=== PATIENT | male | born 1960 | race Caucasian/White ===

== ENCOUNTER 2016-11-14 22:36 | Emergency (ER) | payer OTHER ==
[~2016-11-14] VITALS: Ht 175.3 cm; Wt 100.0 kg
[~2016-11-14 22:36] MED LIST: Z.0.NO CURRENT MEDS
[2016-11-14 22:57] VITALS: BP 110/65; PULSE 130; RESP 16; TEMP 98.6; O2SAT 94
[2016-11-14] MEDS ORDERED: SODIUM CHLORIDE 0.9% FLUSH 10 ML FLUSH IVF PRN (23:15)
[2016-11-14] MEDS ORDERED: SODIUM CHLOR 0.9% 1000 ML INJ 1,000 ML IV ONE (23:15)
--- NOTE | 2016-11-14 23:29 | PD ---
HPI Chief Complaint: Psychiatric Symptoms Time Seen by Provider: 23:03 Travel History International Travel<30 days: No Contact w/Intl Traveler<30days: No Traveled to known affect area: No History of Present Illness HPI Patient is a 56-year-old male presenting to the emergency department under a West act for psychiatric evaluation. Patient states he called 211 because he had been feeling depressed, he then agreed to allow the police to come to his house. He states that he took several Xanax throughout the course of the day and has been drinking whiskey and beer. Patient states he's had suicidal thoughts in the past but has not attempted suicide. He has no current plan at this time but has access to firearms in his home. Patient states he has a history of manic depressive disorder. [place] any visual auditory hallucinations. He reports increased stressors and unhappiness with his life and job in general. PFSH Past Medical History Anxiety: Yes Depression: Yes Diabetes: Yes (type II--diet control) Diminished Hearing: No Hypertension: Yes Social History Alcohol Use: Yes (whiskey daily) Tobacco Use: Yes (1+ PPD) Substance Use: Yes Allergies-Medications (Allergen,Severity, Reaction): Coded Allergies: No Known Allergies (Unverified , 11/14/16) Reported Meds & Prescriptions Reported Meds & Active Scripts Active Reported No Current Meds (Miscellaneous Medication) Misc Review of Systems Except as stated in HPI: all other systems reviewed are Neg Psychiatric: Positive: Depression, Suicidal Ideations, Substance Abuse Physical Exam Narrative GENERAL: Well-developed, well-nourished, intoxicated-appearing male. Resting comfortably in no acute distress. SKIN: Warm and dry. HEAD: Atraumatic. Normocephalic. EYES: Pupils equal and round. No scleral icterus. No injection or drainage. ENT: No nasal bleeding or discharge. Mucous membranes pink and moist. NECK: Trachea midline. No JVD. CARDIOVASCULAR: Regular rate and rhythm. RESPIRATORY: No accessory muscle use. Clear to auscultation. Breath sounds equal bilaterally. GASTROINTESTINAL: Abdomen soft, non-tender, nondistended. Hepatic and splenic margins not palpable. MUSCULOSKELETAL: Extremities without clubbing, cyanosis, or edema. No obvious deformities. NEUROLOGICAL: Awake and alert. No obvious cranial nerve deficits. Motor grossly within normal limits. Five out of 5 muscle strength in the arms and legs. Normal speech. PSYCHIATRIC: Flat mood and affect; insight and judgment impaired. Data Data Last Documented VS Vital Signs Date Time Temp Pulse Resp B/P (MAP) Pulse Ox O2 Delivery O2 Flow Rate FiO2 11/14/16 22:57 98.6 130 16 110/65 (80) 94 Orders Orders Complete Blood Count With Diff (11/14/16 23:) Comprehensive Metabolic Panel (11/14/16:) Iv Access Insert/Monitor (11/14/16:) Ecg Monitoring (11/14/16:) Psych Screen (11/14/16:) Sodium Chloride 0.9% Flush (Ns Flush) (11/14/16:15) Drug Screen, Random Urine (11/14/16:) Alcohol (Ethanol) (11/14/16:) Salicylates (Aspirin) (11/14/16:) Tylenol (Acetaminophen) (11/14/16:) Sodium Chlor 0.9% 1000 Ml Inj (Ns 1000 M (11/14/16 23:) Labs Laboratory Tests Test 11/14/16 23:20 White Blood Count 9.2 TH/MM3 Red Blood Count 4.77 MIL/MM3 Hemoglobin 15.4 GM/DL Hematocrit 43.9 % Mean Corpuscular Volume 92.1 FL Mean Corpuscular Hemoglobin 32.3 PG Mean Corpuscular Hemoglobin Concent 35.0 % Red Cell Distribution Width 13.6 % Platelet Count 200 TH/MM3 Mean Platelet Volume 8.3 FL Neutrophils (%) (Auto) 52.1 % Lymphocytes (%) (Auto) 34.1 % Monocytes (%) (Auto) 7.6 % Eosinophils (%) (Auto) 5.5 % Basophils (%) (Auto) 0.7 % Neutrophils # (Auto) 4.8 TH/MM3 Lymphocytes # (Auto) 3.1 TH/MM3 Monocytes # (Auto) 0.7 TH/MM3 Eosinophils # (Auto) 0.5 TH/MM3 Basophils # (Auto) 0.1 TH/MM3 CBC Comment DIFF FINAL Differential Comment Blood Urea Nitrogen 12 MG/DL Creatinine 1.02 MG/DL Random Glucose 110 MG/DL Total Protein 6.8 GM/DL Albumin 3.7 GM/DL Calcium Level 8.9 MG/DL Alkaline Phosphatase 49 U/L Aspartate Amino Transf (AST/SGOT) 21 U/L Alanine Aminotransferase (ALT/SGPT) 37 U/L Total Bilirubin 0.2 MG/DL Sodium Level 142 MEQ/L Potassium Level 3.5 MEQ/L Chloride Level 106 MEQ/L Carbon Dioxide Level 27.2 MEQ/L Anion Gap 9 MEQ/L Estimat Glomerular Filtration Rate 76 ML/MIN Salicylates Level 3.3 MG/DL Acetaminophen Level LESS THAN 2.0 MCG/ML Ethyl Alcohol Level 194 MG/DL MDM Medical Decision Making Medical Screen Exam Complete: Yes Emergency Medical Condition: Yes Interpretation(s) Laboratory Tests Test 11/14/16 23:20 White Blood Count 9.2 TH/MM3 Red Blood Count 4.77 MIL/MM3 Hemoglobin 15.4 GM/DL Hematocrit 43.9 % Mean Corpuscular Volume 92.1 FL Mean Corpuscular Hemoglobin 32.3 PG Mean Corpuscular Hemoglobin Concent 35.0 % Red Cell Distribution Width 13.6 % Platelet Count 200 TH/MM3 Mean Platelet Volume 8.3 FL Neutrophils (%) (Auto) 52.1 % Lymphocytes (%) (Auto) 34.1 % Monocytes (%) (Auto) 7.6 % Eosinophils (%) (Auto) 5.5 % Basophils (%) (Auto) 0.7 % Neutrophils # (Auto) 4.8 TH/MM3 Lymphocytes # (Auto) 3.1 TH/MM3 Monocytes # (Auto) 0.7 TH/MM3 Eosinophils # (Auto) 0.5 TH/MM3 Basophils # (Auto) 0.1 TH/MM3 CBC Comment DIFF FINAL Differential Comment Blood Urea Nitrogen 12 MG/DL Creatinine 1.02 MG/DL Random Glucose 110 MG/DL Total Protein 6.8 GM/DL Albumin 3.7 GM/DL Calcium Level 8.9 MG/DL Alkaline Phosphatase 49 U/L Aspartate Amino Transf (AST/SGOT) 21 U/L Alanine Aminotransferase (ALT/SGPT) 37 U/L Total Bilirubin 0.2 MG/DL Sodium Level 142 MEQ/L Potassium Level 3.5 MEQ/L Chloride Level 106 MEQ/L Carbon Dioxide Level 27.2 MEQ/L Anion Gap 9 MEQ/L Estimat Glomerular Filtration Rate 76 ML/MIN Salicylates Level 3.3 MG/DL Acetaminophen Level LESS THAN 2.0 MCG/ML Ethyl Alcohol Level 194 MG/DL Vital Signs Date Time Temp Pulse Resp B/P (MAP) Pulse Ox O2 Delivery O2 Flow Rate FiO2 10/1/17 22:57 98.6 130 16 110/65 (80) 94 Differential Diagnosis Mood disorder versus substance abuse for his suicidal ideations versus psychosis versus metabolic abnormality versus other Narrative Course Patient presented under West act for psychiatric evaluation second making suicidal ideations. Patient was tachycardic on arrival, he was given 1 L of IV fluids. Labs ordered and pending. Mental health screening discussed with the patient. Psychiatric screen ordered. CBC, chemistry reviewed, no acute findings identified. Alcohol level is 194 Salicylate and acetaminophen level are unremarkable Patient's heart rate was reassessed at 94. At this time patient is medically cleared for psychiatric evaluation. Diagnosis Primary Impression: Medical clearance for psychiatric admission Additional Impression: Acute alcohol intoxication Qualified Codes: F10.929 - Alcohol use, unspecified with intoxication, unspecified Condition: Stable Maria Alejandra Mello [employer] Nov 14, 2016 23:29
[2016-11-14 23:30] VITALS: BP 101/53; PULSE 106; RESP 20; O2SAT 100
[2016-11-14 23:35] LABS: AUTOMATED NEUTROPHIL # 4.8 TH/MM3 (1.8-7.7); BASOPHIL # 0.1 TH/MM3 (0-0.2); BASOPHIL % 0.7 % (0.0-2.0); EOSINOPHIL # 0.5 TH/MM3 (0-0.4); EOSINOPHIL % 5.5 % (0.0-4.0); HEMATOCRIT 43.9 % (39.0-51.0); HEMO FLAGS DIFF FINAL; LYMPH % 34.1 % (9.0-44.0); LYMPHOCYTE # 3.1 TH/MM3 (1.0-4.8); MEAN CELL VOLUME 92.1 FL (80.0-100.0); MEAN CORPUSCULAR HEMOGLOBIN 32.3 PG (27.0-34.0); MONO % 7.6 % (0.0-8.0); NEUT % 52.1 % (16.0-70.0); PLATELET COUNT 200 TH/MM3 (150-450); RED BLOOD COUNT 4.77 MIL/MM3 (4.50-5.90); RED CELL DISTRIBUTION WIDTH 13.6 % (11.6-17.2); WHITE BLOOD COUNT 9.2 TH/MM3 (4.0-11.0)
[2016-11-14 23:48] LABS: ALT (GPT) 37 U/L (12-78); ANION GAP 9 MEQ/L (5-15); AST (GOT) 21 U/L (15-37); BICARBONATE 27.2 MEQ/L (21.0-32.0); BLOOD UREA NITROGEN 12 MG/DL (7-18); CHLORIDE 106 MEQ/L (98-107); GLOMERULAR FILTRATION RATE 76 ML/MIN (>89); POTASSIUM 3.5 MEQ/L (3.5-5.1); SODIUM (NA) 142 MEQ/L (136-145)
[2016-11-14 23:50] LABS: ACETAMINOPHEN LESS THAN 2.0 MCG/ML (10.0-30.0); ALKALINE PHOSPHATASE 49 U/L (45-117); TOTAL BILIRUBIN ADULT 0.2 MG/DL (0.2-1.0)
[2016-11-14 23:52] LABS: ALCOHOL 194 MG/DL (0-5)
[2016-11-15] MEDS ORDERED: HALOPERIDOL 5 MG TAB PO ONE (01:00)
[2016-11-15] MEDS ORDERED: diphenhydrAMINE HCL 25 MG CAP PO ONE (01:00)
[2016-11-15 02:13] VITALS: BP 102/59; PULSE 77; RESP 18; O2SAT 96
[2016-11-15 08:46] VITALS: BP 156/78; PULSE 86; RESP 20; O2SAT 100
[2016-11-15 17:11] VITALS: BP 134/78; PULSE 80; RESP 18; O2SAT 98
--- NOTE | 2016-11-15 18:32 | PD ---
History of Present Illness Chief Complaint: Psychiatric Symptoms Time Seen by Provider: 18:30 Travel History International Travel<30 Days: No Contact w/Intl Traveler<30days: No Known affected area: No Legal Status Legal Status: West Act West Act Signed By: Isidra Chakraborty History of Present Illness: History of Present Illness HPI Patient is a 56-year-old male with history of bipolar disorder as well as alcohol abuse presenting to the emergency department under a West act initiated by law enforcement.The report alleges that the police responded to a call in reference to a suicidal person. Patient states he called 211 because he had been feeling depressed, he then agreed to allow the police to come to his house. He states that he took several Xanax throughout the course of the day and has been drinking whiskey and beer. He has no current plan at this time but has access to firearms in his home. Seen. EMR reviewed. Patient has been seen x 2 in 2012 in relation to alcohol use issues. he has been sent to [facility]. BAL on arrival is 194. Alert, oriented, calm, engaging, male who is maintaining basic hygiene. he appears stated age. He is clinically sober. Speech is clear, ambulates well with no gait impairment. No psychosis and no sienna. He reports that he had been drinking and had been feeling depressed and called 211. States " I was having a huge pity potty and invited many other people along by calling" . Denies any suicdal or homicidal ideation and states " I have to get things under control. I have 2 beautiful granddaughters" . he also reports that he has not had any medication besides the Xanax for several years since he lost his medical insurance. States that when he took Depakote his mood was stable.he would like to be able to have medications again as well as to receive counseling services. PFSH Past Medical History Anxiety: Yes Depression: Yes Diabetes: Yes (type II--diet control) Patient Takes Glucophage: No Diminished Hearing: No Hypertension: Yes Tetanus Vaccination: Unknown Past Surgical History Surgical History: No Previous Surgery Psychiatric History Psychiatric History Hx Psychiatric Treatment: HX OF BEING WEST ACTED WITH SIMULAR PRESENTATION IN 2011 One previous psychiatric hospitalization in 2012 Denies any history of suicide attempts Hx of Depakote and Seroquel to help with sleep. Currently prescribed Xanax by PCP History of Inpatient Treatment: Yes Guns or firearms in home: No (Daughter will keep gun in gunsafe. She is the only one that has that caal) Social History male, lives by himself. 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 Hx Alcohol Use: Yes (whiskey daily) Hx Tobacco Use: Yes (1+ PPD) Hx Substance Use: Yes Substance Use Type: Alcohol, Prescription Medications, Benzos (Valium,Xanax) Other Substances Used: DENIES HX OF WITHDRAWAL SYMPTOMS Hx of Substance Use Treatment: No Family Psychiatric History MOTHER W BIPOLAR Allergies-Medications (Allergen,Severity, Reaction): Coded Allergies: No Known Allergies (Unverified , 11/15/16) Reported Meds & Prescriptions Reported Meds & Active Scripts Active No Active Prescriptions or Reported Medications Review of Systems Except as stated in HPI: all other systems reviewed are Neg Exam Alert: Yes [place]: Person (ox4) Mood: Calm Affect: Appropriate Speech: Clear, Logical Eye Contact: Normal Memory Intact: Comment (No impairment) Hallucinations: Other (Negative) Delusions: No Suicidal: Ideation (Deneis any) Homicidal: Ideation (Denies ) Insight/Judgement Fair. Not impaired MDM Medical Decision Making Medical Record Reviewed: Yes Assessment/Plan Patient is a 56-year-old male with history of bipolar disorder as well as alcohol abuse presenting to the emergency department under a West act for psychiatric evaluation. Patient states he called 211 because he had been feeling depressed. He states that he took several Xanax throughout the course of the day and has been drinking whiskey and beer. He did not make any attempt at harming himself. Patient at this time is clinically sober. He does not present any psychosis, no sienna. No suicdal or homicidal ideation, intent or plan. Cognitively intact. Future oriented with adequate protective factors. Psychoeducation is provided. He will be given information to follow up at [facility]. Psychiatrically clear for discharge. Orders Orders Complete Blood Count With Diff (11/14/16 23:01) Comprehensive Metabolic Panel (11/14/16 23:01) Iv Access Insert/Monitor (11/14/16 23:01) Ecg Monitoring (11/14/16 23:01) Psych Screen (11/14/16 23:01) Sodium Chloride 0.9% Flush (Ns Flush) (11/14/16 23:15) Drug Screen, Random Urine (11/14/16 23:01) Alcohol (Ethanol) (11/14/16 23:01) Salicylates (Aspirin) (11/14/16 23:01) Tylenol (Acetaminophen) (11/14/16 23:01) Sodium Chlor 0.9% 1000 Ml Inj (Ns 1000 M (11/14/16 23:15) Haloperidol (Haldol) (11/15/16 01:00) Diphenhydramine (Benadryl) (11/15/16 01:00) Diet Regular Basic (11/15/16 Breakfast) Results Vital Signs Date Time Temp Pulse Resp B/P (MAP) Pulse Ox O2 Delivery O2 Flow Rate FiO2 11/15/16 17:11 80 18 134/78 (96) 98 Room Air 11/15/16 08:46 86 20 156/78 (104) 100 Room Air 11/15/16 02:13 77 18 102/59 (73) 96 Room Air 11/14/16 23:30 106 20 101/53 (69) 100 Room Air 11/14/16 22:57 98.6 130 16 110/65 (80) 94 Laboratory Tests Test 11/14/16 23:20 11/15/16 00:27 White Blood Count 9.2 Red Blood Count 4.77 Hemoglobin 15.4 Hematocrit 43.9 Mean Corpuscular Volume 92.1 Mean Corpuscular Hemoglobin 32.3 Mean Corpuscular Hemoglobin Concent 35.0 Red Cell Distribution Width 13.6 Platelet Count 200 Mean Platelet Volume 8.3 Neutrophils (%) (Auto) 52.1 Lymphocytes (%) (Auto) 34.1 Monocytes (%) (Auto) 7.6 Eosinophils (%) (Auto) 5.5 Basophils (%) (Auto) 0.7 Neutrophils # (Auto) 4.8 Lymphocytes # (Auto) 3.1 Monocytes # (Auto) 0.7 Eosinophils # (Auto) 0.5 Basophils # (Auto) 0.1 CBC Comment DIFF FINAL Differential Comment Blood Urea Nitrogen 12 Creatinine 1.02 Random Glucose 110 Total Protein 6.8 Albumin 3.7 Calcium Level 8.9 Alkaline Phosphatase 49 Aspartate Amino Transf (AST/SGOT) 21 Alanine Aminotransferase (ALT/SGPT) 37 Total Bilirubin 0.2 Sodium Level 142 Potassium Level 3.5 Chloride Level 106 Carbon Dioxide Level 27.2 Anion Gap 9 Estimat Glomerular Filtration Rate 76 Salicylates Level 3.3 Acetaminophen Level LESS THAN 2.0 Ethyl Alcohol Level 194 Urine Opiates Screen NEG Urine Barbiturates Screen NEG Urine Amphetamines Screen NEG Urine Benzodiazepines Screen POS Urine Cocaine Screen NEG Urine Cannabinoids Screen NEG Diagnosis Primary Impression: Medical clearance for psychiatric admission Additional Impression: Acute alcohol intoxication Psychiatrically Cleared: Yes Additional Instructions: Follow up with [facility] Med/ Other Pt Specific Info: No Change to Meds Prescriptions No Active Prescriptions or Reported Meds Disposition: 01 DISCHARGE HOME Condition: Stable Problem Qualifiers Additional Impression: Acute alcohol intoxication Qualified Codes: F10.929 - Alcohol use, unspecified with intoxication, unspecified Rebecca Jackson Nov 15, 2016 18:32
--- NOTE | 2016-11-15 18:54 | PD ---
Physical Exam Date Seen by Provider: Nov 15, 2016 Time Seen by Provider: 18:52 Data Data Last Documented VS Vital Signs Date Time Temp Pulse Resp B/P (MAP) Pulse Ox O2 Delivery O2 Flow Rate FiO2 11/15/16 17:11 80 18 134/78 (96) 98 Room Air 11/14/16 22:57 98.6 Orders Orders Complete Blood Count With Diff (11/14/16 23:01) Comprehensive Metabolic Panel (11/14/16 23:01) Iv Access Insert/Monitor (11/14/16 23:) Ecg Monitoring (11/14/16 23:) Psych Screen (11/14/16 23:01) Sodium Chloride 0.9% Flush (Ns Flush) (11/14/16 23:15) Drug Screen, Random Urine (11/14/16 23:) Alcohol (Ethanol) (11/14/16 23:01) Salicylates (Aspirin) (11/14/16 23:01) Tylenol (Acetaminophen) (11/14/16 23:01) Sodium Chlor 0.9% 1000 Ml Inj (Ns 1000 M (11/14/16 23:15) Haloperidol (Haldol) (11/15/16 01:00) Diphenhydramine (Benadryl) (11/15/16 01:00) Diet Regular Basic (11/15/16 Breakfast) Labs Laboratory Tests Test 11/14/16 23:20 11/15/16 00:27 White Blood Count 9.2 TH/MM3 Red Blood Count 4.77 MIL/MM3 Hemoglobin 15.4 GM/DL Hematocrit 43.9 % Mean Corpuscular Volume 92.1 FL Mean Corpuscular Hemoglobin 32.3 PG Mean Corpuscular Hemoglobin Concent 35.0 % Red Cell Distribution Width 13.6 % Platelet Count 200 TH/MM3 Mean Platelet Volume 8.3 FL Neutrophils (%) (Auto) 52.1 % Lymphocytes (%) (Auto) 34.1 % Monocytes (%) (Auto) 7.6 % Eosinophils (%) (Auto) 5.5 % Basophils (%) (Auto) 0.7 % Neutrophils # (Auto) 4.8 TH/MM3 Lymphocytes # (Auto) 3.1 TH/MM3 Monocytes # (Auto) 0.7 TH/MM3 Eosinophils # (Auto) 0.5 TH/MM3 Basophils # (Auto) 0.1 TH/MM3 CBC Comment DIFF FINAL Differential Comment Blood Urea Nitrogen 12 MG/DL Creatinine 1.02 MG/DL Random Glucose 110 MG/DL Total Protein 6.8 GM/DL Albumin 3.7 GM/DL Calcium Level 8.9 MG/DL Alkaline Phosphatase 49 U/L Aspartate Amino Transf (AST/SGOT) 21 U/L Alanine Aminotransferase (ALT/SGPT) 37 U/L Total Bilirubin 0.2 MG/DL Sodium Level 142 MEQ/L Potassium Level 3.5 MEQ/L Chloride Level 106 MEQ/L Carbon Dioxide Level 27.2 MEQ/L Anion Gap 9 MEQ/L Estimat Glomerular Filtration Rate 76 ML/MIN Salicylates Level 3.3 MG/DL Acetaminophen Level LESS THAN 2.0 MCG/ML Ethyl Alcohol Level 194 MG/DL Urine Opiates Screen NEG Urine Barbiturates Screen NEG Urine Amphetamines Screen NEG Urine Benzodiazepines Screen POS Urine Cocaine Screen NEG Urine Cannabinoids Screen NEG MDM Supervised Visit with [facility]: No Narrative Course 56-year-old male brought to the ED under West act for psychiatric evaluation. Patient was seen by C[facility]O Corrales and medically cleared. The patient was evaluated by [facility] Diggs and the West act was lifted. On my evaluation the patient is alert and oriented. He denies somatic complaints. GENERAL: Well-nourished, well-developed, mildly tremulous white male in no acute distress. PSYCHIATRIC: No delusional thought processes. No hallucinations. SKIN: Focused skin assessment warm/dry. HEAD: Normocephalic. EYES: No scleral icterus. No injection or drainage. NECK: Supple, trachea midline. No JVD or lymphadenopathy. CARDIOVASCULAR: Regular rate and rhythm without murmurs, gallops, or rubs. RESPIRATORY: Breath sounds clear and equal bilaterally. No accessory muscle use. GASTROINTESTINAL: Abdomen soft, non-tender, nondistended. MUSCULOSKELETAL: No cyanosis, or edema. Patient demonstrates a normal gait. BACK: Nontender without obvious deformity. No CVA tenderness. Diagnosis Primary Impression: Medical clearance for psychiatric admission Additional Impression: Acute alcohol intoxication Qualified Codes: F10.929 - Alcohol use, unspecified with intoxication, unspecified Referrals: [facility] (Out patient) Additional Instruction: Follow up with [facility] as discussed with the nurse practitioner. Return to the ED for any urgent or emergent medical condition. Scripts No Active Prescriptions or Reported Meds Disposition: 01 DISCHARGE HOME Condition: Stable Radhika Peterson Nov 15, 2016 18:54
== END 2016-11-15 19:19 | disposition home or self-care (01) ==
LOC: NEPD 22:36 → NEPB 11-15 19:19
DX: F10.129 Alcohol abuse with intoxication, unspecified (principal); E11.9 Type 2 diabetes mellitus without complications; I10 Essential (primary) hypertension; Z72.0 Tobacco use
CPT/HCPCS: 80053; 80307; 85025; 96360; 96361; 99284; J7030